=== PATIENT | female | born 1990 | race Caucasian/White ===

== ENCOUNTER 2016-10-02 08:58 | Emergency (ER) | payer SELFPAY ==
[~2016-10-02] VITALS: Ht 165.1 cm; Wt 68.0 kg
[2016-10-02 09:35] LABS: HEMOGLOBIN 11.9 g/dL (12.2-16.2); LYMPH # 1.9 K/mm3 (0.7-4.5); LYMPH % 24.3 % (10-50.0)
[2016-10-02 09:47] LABS: URINE BLOOD NEGATIVE (NEG)
[2016-10-02 09:52] LABS: URINE BILIRUBIN - DIPSTICK NEGATIVE (NEG)
[2016-10-02 09:53] LABS: AMPHETAMINES/METAMPHETAMINES POSITIVE ng/mL (<1000)
--- NOTE | 2016-10-02 10:15 | Emergency Room Report ---
History of Present Illness Time Seen by MD [id number] Presenting Problem in Triage Pt arrived:Ambulance Stretcher Presenting Problem:PT FOUND RUNNING AROUND IN TOWN WITH AMS. PT ARRIVED TO ED AND IS JERKING AND TWITCHING, PT DENIED ANY DRUG USE AND IS STILL NOT TALKING RIGHT. PT ADVISES SHE RUN AWAY BUT WILL NOT SAY FROM WHERE. PT GAVE ME A NAME BUT WILL NOT GIVE MUCH MORE INFORMATION Onset of symptoms date/time:/ or onset unknown for:MEDICAL HX UNKNOWN Treatment Prior to Arrival: COMPOSITE SCIENCE TEACHER ADVISES PT TALKING INCOHERENTLY AND WAS RUNNING AROUND V/S OBTAINED GEOGRAPHIC ANALYST Provided by:COMPOSITE SCIENCE TEACHER Sepsis Risk Assessment: Temp: 98.5 B/P: 140/85 MAP: 103 Pulse: 130 Resp: 16 Recent fever? N Clinical Suspician of Infection? N Mental Status: 2 - Mildly Altered Sepsis Risk:Low Sepsis Risk Have you (or family members/close friends) recently traveled outside the [place]? N If Yes, where/when: Have you had exposure to infectious disease within the past month? N TB? Other? Specify: Patient brought in by PD due to agitation in public. Patient arrives with visual hallucinations, asking RN to ask people to leave room, when only with medic. She denies any pain. She is at times singing, and at times agitated. 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 Multiple tattoos. Hair closely cropped. Eye Exam - bilateral eye normal exam, bilateral eye PERRL, bilateral eye EOMI Ear, Nose, Throat hearing grossly normal Neck non-tender, supple, full range of motion (linear excoriations anteriorly) Respiratory Status Yes: trachea midline, chest symmetrical, non tender chest. No: respiratory distress, tender on palpation, use of accessory muscles, pain on inspiration, pain on expiration, productive cough, non productive cough. Lung Sounds bilateral: normal breath sounds, lungs clear. Cardiovascular normal exam, regular rate/rhythm, no peripheral edema, no gallop, no JVD, no murmur, no rub, normal peripheral pulses, tachycardia Peripheral Pulses Pulses normal Yes Gastrointestinal normal bowel sounds, normal exam, non tender, soft, no organomegaly, no pulsatile mass, no guarding, no rebound Extremities non-tender (minor abrasion R foot/sole), normal range of motion Strength 5 Upper Ext (L), 5 Upper Ext (R), 5 Lower Ext (L), 5 Lower Ext (R) Neurologic alert, upper caser II-XII nml as tested, normal exam, no motor/sensory deficits, oriented x 3, nonfocal exam; no tremor; she is agitated and at times has random jerking movements of limbs and is actively hallucinating; no seizure activity. She talks with MD and is cooperative with MD and with staff. Skin intact (minor excoriations to neck) Lymphatic no adenopathy Medical Decision Making LABS/Meds/Orders Pt receiving controlled substance in ED? No Results/Orders Laboratory Tests 10/02/16 0930: Opiates Screen POSITIVE H, Urine Methadone Screen NEGATIVE, Barbiturates NEGATIVE, Phencyclidine Screen NEGATIVE, Amphetamines Screen POSITIVE H, Benzodiazepines Screen NEGATIVE, Cocaine Screen POSITIVE H, Marijuana (THC) Screen NEGATIVE, Urine Color YELLOW, Urine Appearance SL CLOUDY, Urine pH 5.5, Ur Specific [place] >= 1.030, Urine Protein 2+ H, Urine Ketones TRACE H, Urine Blood NEGATIVE, Urine Nitrate NEGATIVE, Urine Bilirubin NEGATIVE, Urine Urobilinogen 1.0, Ur Leukocyte Esterase NEGATIVE, Urine RBC 3-5, Urine WBC 5-10, Urine Bacteria 3+, Hyaline Casts OCC, Urine Mucus 3+, Urine Glucose NEGATIVE 10/02/16 0928: Troponin I < 0.02 10/02/16 0920: Sodium 140, Potassium 2.8 *L, Chloride 101, Carbon Dioxide 26, BUN 11, Creatinine 1.0, Estimated Creat Clear 91, Estimated GFR (MDRD) 67, Glucose 79, Calcium 9.1, Total Bilirubin 0.8, AST 50 H, ALT 97 H, Alkaline Phosphatase 51, Total Protein 7.9, Albumin 4.2, Globulin 3.7 H, Albumin/Globulin Ratio 1.1, WBC 7.6, RBC 3.92 L, Hgb 11.9 L, Hct 34.8 L, MCV 88.7, RDW 11.9, Plt Count 219, MPV 6.8 L, Gran % 68.2, Gran # 5.2, Lymphocytes % 24.3, Monocytes % 6.3, Eosinophils % 1.0, Basophils % 0.2, Lymphocytes # 1.9, Monocytes # 0.5, Eosinophils # 0.1, Basophils # 0.0, PUBS MCHC 34.2, MCH 30.4, Alcohols 0 Current Medication Orders Sig/Fred Start time Last Medication Dose Route Stop Time Status Admin Lorazepam 1 MG ONCE ONE 10/02 1015 DC 10/02 IV 10/02 1016 1009 Ziprasidone 20 MG ONCE ONE 10/02 1015 DC 10/02 PO 10/02 1016 1012 Potassium Chloride 0 .STK-MED ONE 10/02 1007 DC PO Lorazepam 0 .STK-MED ONE 10/02 1006 DC .ROUTE Potassium Chloride 40 MEQ ONCE ONE 10/02 1000 DC 10/02 PO 10/02 1001 1009 Sodium Chloride 10 ML PRN PRN 10/02 0930 AC IV 10/03 0917 Orders Procedure Date/time Status ALCOHOL 10/02 1029 Complete TROPONIN I 10/02 1016 Complete OP COURTSEY MEAL 10/02 1014 Active ELECTROCARDIOGRAM REQUEST 10/02 0937 Active CULTURE, URINE 10/02 929 Active FOOT-RT-3 VIEWS 10/02 916 Active IV SALINE LOCK 10/02 916 Active URINALYSIS/COMPLETE 10/02 916 Complete URINE 10/02 916 Complete DRUG ABUSE SCREEN (TRIAGE) 10/02 916 Complete CBC WITH AUTO DIFF 10/02 916 Complete CHEM 12 PROFILE 10/02 916 Complete 12 LEAD EKG-MIRACLE (INITIAL) 10/02 UNK Active CM/EKG CM/EKG EKG rate, rhythm, no evid. of ischemic chgs, no ectopy, normal QRS, normal [place] , normal EKG, sinus tach, TWI in one lead but no global TW changes; normal QTc; no ectopy; lots of motion artifact. Consult MD Physician Consult Consult/PCP Dr. Mendoza: stimulus abuse as etiology of visual hallucinations. Time Called 1026 Reason Transfer to facility Progress ED Progress Notes Date 10/02/16 Time 1026 Comment Give potassium and Geodon PO. Departure Departure Time of Disposition 1044 Disposition DC Home or Self Care(routine) Clinical Impression Primary Impression: Substance abuse Secondary Impressions: Abrasion, right foot, initial encounter, Acute psychosis, Hypokalemia Condition STABLE ED Critical Care Critical Care Yes Time spent < 30 min Vital system(s) involved: Circulatory Failure (agitation; hypokalemia) I was present at bedside for Coordinating pt's care, Interpreting EKGs/Strips , During my initial exam, Reviewing lab results, Discussing pt condition, For re -examinations (consultation) at 1121
--- NOTE | 2016-10-02 10:15 | Emergency Room Report ---
History of Present Illness Time Seen by MD [id number] Presenting Problem in Triage Pt arrived:Ambulance Stretcher Presenting Problem:PT FOUND RUNNING AROUND [place]OWN WITH AMS. PT ARRIVED TO ED AND IS JERKING AND TWITCHING, PT DENIED ANY DRUG USE AND IS STILL NOT TALKING RIGHT. PT ADVISES SHE RUN AWAY BUT WILL NOT SAY FROM WHERE. PT GAVE ME A NAME BUT WILL NOT GIVE MUCH MORE INFORMATION Onset of symptoms date/time:/ or onset unknown for:MEDICAL HX UNKNOWN Treatment Prior to Arrival: DIRECTOR OF ANALYTICAL DEVELOPMENT ADVISES PT TALKING INCOHERENTLY AND WAS RUNNING AROUND V/S OBTAINED MARINE INSULATOR Provided by:DIRECTOR OF ANALYTICAL DEVELOPMENT Sepsis Risk Assessment: Temp: 98.5 B/P: 140/85 MAP: 103 Pulse: 130 Resp: 16 Recent fever? N Clinical Suspician of Infection? N Mental Status: 2 - Mildly Altered Sepsis Risk:Low Sepsis Risk Have you (or family members/close friends) recently traveled outside the [place]? N If Yes, where/when: Have you had exposure to infectious disease within the past month? N TB? Other? Specify: Patient brought in by PD due to agitation in public. Patient arrives with visual hallucinations, asking RN to ask people to leave room, when only with medic. She denies any pain. She is at times singing, and at times agitated. 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 Multiple tattoos. Hair closely cropped. Eye Exam - bilateral eye normal exam, bilateral eye PERRL, bilateral eye EOMI Ear, Nose, Throat hearing grossly normal Neck non-tender, supple, full range of motion (linear excoriations anteriorly) Respiratory Status Yes: trachea midline, chest symmetrical, non tender chest. No: respiratory distress, tender on palpation, use of accessory muscles, pain on inspiration, pain on expiration, productive cough, non productive cough. Lung Sounds bilateral: normal breath sounds, lungs clear. Cardiovascular normal exam, regular rate/rhythm, no peripheral edema, no gallop, no JVD, no murmur, no rub, normal peripheral pulses, tachycardia Peripheral Pulses Pulses normal Yes Gastrointestinal normal bowel sounds, normal exam, non tender, soft, no organomegaly, no pulsatile mass, no guarding, no rebound Extremities non-tender (minor abrasion R foot/sole), normal range of motion Strength 5 Upper Ext (L), 5 Upper Ext (R), 5 Lower Ext (L), 5 Lower Ext (R) Neurologic alert, exhibitions and collections manager II-XII nml as tested, normal exam, no motor/sensory deficits, oriented x 3, nonfocal exam; no tremor; she is agitated and at times has random jerking movements of limbs and is actively hallucinating; no seizure activity. She talks with MD and is cooperative with MD and with staff. Skin intact (minor excoriations to neck) Lymphatic no adenopathy Medical Decision Making LABS/Meds/Orders Pt receiving controlled substance in ED? No Results/Orders Laboratory Tests 10/02/16 0930: Opiates Screen POSITIVE H, Urine Methadone Screen NEGATIVE, Barbiturates NEGATIVE, Phencyclidine Screen NEGATIVE, Amphetamines Screen POSITIVE H, Benzodiazepines Screen NEGATIVE, Cocaine Screen POSITIVE H, Marijuana (THC) Screen NEGATIVE, Urine Color YELLOW, Urine Appearance SL CLOUDY, Urine pH 5.5, Ur Specific [place] >= 1.030, Urine Protein 2+ H, Urine Ketones TRACE H, Urine Blood NEGATIVE, Urine Nitrate NEGATIVE, Urine Bilirubin NEGATIVE, Urine Urobilinogen 1.0, Ur Leukocyte Esterase NEGATIVE, Urine RBC 3-5, Urine WBC 5-10, Urine Bacteria 3+, Hyaline Casts OCC, Urine Mucus 3+, Urine Glucose NEGATIVE 10/02/16 0928: Troponin I < 0.02 10/02/16 0920: Sodium 140, Potassium 2.8 *L, Chloride 101, Carbon Dioxide 26, BUN 11, Creatinine 1.0, Estimated Creat Clear 91, Estimated GFR (MDRD) 67, Glucose 79, Calcium 9.1, Total Bilirubin 0.8, AST 50 H, ALT 97 H, Alkaline Phosphatase 51, Total Protein 7.9, Albumin 4.2, Globulin 3.7 H, Albumin/Globulin Ratio 1.1, WBC 7.6, RBC 3.92 L, Hgb 11.9 L, Hct 34.8 L, MCV 88.7, RDW 11.9, Plt Count 219, MPV 6.8 L, Gran % 68.2, Gran # 5.2, Lymphocytes % 24.3, Monocytes % 6.3, Eosinophils % 1.0, Basophils % 0.2, Lymphocytes # 1.9, Monocytes # 0.5, Eosinophils # 0.1, Basophils # 0.0, PUBS MCHC 34.2, MCH 30.4, Alcohols 0 Current Medication Orders Sig/Fred Start time Last Medication Dose Route Stop Time Status Admin Lorazepam 1 MG ONCE ONE 10/02 1015 DC 10/02 IV 10/02 1016 1009 Ziprasidone 20 MG ONCE ONE 10/02 1015 DC 10/02 PO 10/02 1016 1012 Potassium Chloride 0 .STK-MED ONE 10/02 1007 DC PO Lorazepam 0 .STK-MED ONE 10/02 1006 DC .ROUTE Potassium Chloride 40 MEQ ONCE ONE 10/02 1000 DC 10/02 PO 10/02 1001 1009 Sodium Chloride 10 ML PRN PRN 10/02 0930 AC IV 10/03 0917 Orders Procedure Date/time Status ALCOHOL 10/02 1029 Complete TROPONIN I 10/02 1016 Complete OP COURTSEY MEAL 10/02 1014 Active ELECTROCARDIOGRAM REQUEST 10/02 0937 Active CULTURE, URINE 10/02 929 Active FOOT-RT-3 VIEWS 10/02 916 Active IV SALINE LOCK 10/02 916 Active URINALYSIS/COMPLETE 10/02 916 Complete URINE 10/02 916 Complete DRUG ABUSE SCREEN (TRIAGE) 10/02 916 Complete CBC WITH AUTO DIFF 10/02 916 Complete CHEM 12 PROFILE 10/02 916 Complete 12 LEAD EKG-MIRACLE (INITIAL) 10/02 UNK Active CM/EKG CM/EKG EKG rate, rhythm, no evid. of ischemic chgs, no ectopy, normal QRS, normal [place] , normal EKG, sinus tach, TWI in one lead but no global TW changes; normal QTc; no ectopy; lots of motion artifact. Consult MD Physician Consult Consult/PCP Dr. Mendoza: stimulus abuse as etiology of visual hallucinations. Time Called 1026 Reason Transfer to facility Progress ED Progress Notes Date 10/02/16 Time 1026 Comment Give potassium and Geodon PO. Departure Departure Time of Disposition 1044 Disposition DC Home or Self Care(routine) Clinical Impression Primary Impression: Substance abuse Secondary Impressions: Abrasion, right foot, initial encounter, Acute psychosis, Hypokalemia Condition STABLE ED Critical Care Critical Care Yes Time spent < 30 min Vital system(s) involved: Circulatory Failure (agitation; hypokalemia) I was present at bedside for Coordinating pt's care, Interpreting EKGs/Strips , During my initial exam, Reviewing lab results, Discussing pt condition, For re -examinations (consultation) at 1126
--- OUTSIDE RECORDS SUMMARY | 2016-10-02 10:23 | External Medical Summary Rpt ---
Author Author [facility] Organization [facility] Address Unknown Phone Unavailable Care Team Providers Care Cream Beater Name Role Phone DR KHOI PCP [phone] Encounter [facility] [id number] Date(s): 03/12/16 - 03/12/16 [facility] 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 Discharge Disposition: OP Self Care or Home Attending Physician: DG DELANEY -EMR, MD Admitting Physician: DG DELANEY -EMR, MD Referring Physician: HRAIKA WESTFALL REFERRED Reason for Visit INTOXICATION Vital Signs Most recent 1 2 to oldest [Reference Range]: Temperature Oral Source (03/12/16 5:30 AM) Temperature Fahrenheit Mode (03/12/16 5:30 AM) Temperature, 98.4 Deg F Fahrenheit (03/12/16 5:30 AM) [96.8-99.7 Deg F] Clinical 36.9 Deg C Temperature, (03/12/16 5:30 AM) C Peripheral 90 bpm 98 bpm Pulse Rate (03/12/16 7:26 AM) (03/12/16 5:30 AM) [60-100 bpm] Respiratory 18 Breaths/Min Rate [14-20 (03/12/16 7:26 AM) Breaths/Min] Blood Arm, left upper Pressure (03/12/16 5:30 AM) Location Blood Non-Invasive BP Device Pressure (03/12/16 5:30 AM) Source Blood 106/66 mmHg 150/58 mmHg Pressure (03/12/16 7:26 AM) *HI* [90-140/60-9 (03/12/16 5:30 AM) 0 mmHg] Oxygen 99 % 99 % Saturation (03/12/16 7:26 AM) (03/12/16 5:30 AM) [94-100 %] Oxygen Room air Room air Therapy Mode (03/12/16 7:26 AM) (03/12/16 5:30 AM) Problem List Condition Effective Status Health Informant Dates Status Substance Active abuse(Confir med) Allergies, Adverse Reactions, Alerts No Known Allergies Medications No data available for this section Results GENERAL CHEMISTRY Most recent 1 to oldest [Reference Range]: Sodium Level 133 mmol/L [135-143 *LOW* mmol/L] (03/12/16 5:57 AM) Potassium 3.0 mmol/L Level *LOW* [3.5-4.8 (03/12/16 5:57 AM) mmol/L] Chloride 99 mmol/L Level *LOW* [100-110 (03/12/16 5:57 AM) mmol/L] Carbon 28.0 mmol/L Dioxide (03/12/16 5:57 AM) Level [22.0-30.0 mmol/L] Anion Gap 6.0 [2.0-11.0] (03/12/16 5:57 AM) Glucose 105 mg/dL Level (03/12/16 5:57 AM) [70-110 mg/dL] Blood Urea 6 mg/dL Nitrogen (03/12/16 5:57 AM) [6-20 mg/dL] Creatinine 0.70 mg/dL Level (03/12/16 5:57 AM) [0.44-1.03 mg/dL] eGFR 122 mL/min/1.73m2 [>=60 (03/12/16 5:57 AM) mL/min/1.73m 2] eGFR 100 mL/min/1.73m2 NonAfrican (03/12/16 5:57 AM) [>=60 mL/min/1.73m 2] Bun/Creatini 8.6 ne (03/12/16 5:57 AM) [6.0-22.0] Calcium 9.2 mg/dL Level (03/12/16 5:57 AM) [8.9-10.2 mg/dL] Protein 7.1 Gram/dL Total (03/12/16 5:57 AM) [6.3-8.2 Gram/dL] Albumin 3.8 Gram/dL Level (03/12/16 5:57 AM) [3.3-4.5 Gram/dL] Globulin 3 *NA* (03/12/16 5:57 AM) A/G Ratio 1.3 [1.0-1.7] (03/12/16 5:57 AM) Bilirubin 0.5 mg/dL Total (03/12/16 5:57 AM) [0.2-1.0 mg/dL] Alk Phos 59 Units/Liter [25-105 (03/12/16 5:57 AM) Units/Liter] AST [8-34 70 Units/Liter Units/Liter] *HI* (03/12/16 5:57 AM) ALT [10-50 99 Units/Liter Units/Liter] *HI* (03/12/16 5:57 AM) CARDIAC SPECIFIC MARKERS Most recent 1 to oldest [Reference Range]: CK [0-188 104 Units/Liter Units/Liter] (03/12/16 5:57 AM) HEMATOLOGY Most recent 1 to oldest [Reference Range]: WBC 6.3 x10(3)/uL [4.1-10.8 (03/12/16 5:57 AM) x10(3)/uL] RBC 4.07 x10(6)/uL [3.77-5.16 (03/12/16 5:57 AM) x10(6)/uL] Hgb 11.9 Gram/dL [11.2-15.7 (03/12/16 5:57 AM) Gram/dL] Hct 35.8 % [34.1-44.9 (03/12/16 5:57 AM) %] MCV 88.0 fL [79.4-94.8 (03/12/16 5:57 AM) fL] MCH 29.3 pg [25.6-32.2 (03/12/16 5:57 AM) pg] MCHC 33.3 Gram/dL [32.2-35.5 (03/12/16 5:57 AM) Gram/dL] Platelet 242 x10(3)/uL Count (03/12/16 5:57 AM) [140-370 x10(3)/uL] MPV 6.4 fL [8.7-12.0 *LOW* fL] (03/12/16 5:57 AM) RDW 13.6 % [11.7-15.2 (03/12/16 5:57 AM) %] Neut % 68.4 % [34.0-69.5 (03/12/16 5:57 AM) %] Neut # 4.30 x10(3)/uL [1.70-6.00 (03/12/16 5:57 AM) x10(3)/uL] Lymph % 22.7 % [20.0-53.0 (03/12/16 5:57 AM) %] Lymph # 1.4 x10(3)/uL [0.8-3.2 (03/12/16 5:57 AM) x10(3)/uL] [place] % 7.9 % [5.0-12.5 %] (03/12/16 5:57 AM) [place] # 0.5 x10(3)/uL [0.2-1.4 (03/12/16 5:57 AM) x10(3)/uL] Eos % 0.7 % [0.7-6.0 %] (03/12/16 5:57 AM) Eos # 0.0 x10(3)/uL [0.0-0.6 (03/12/16 5:57 AM) x10(3)/uL] Baso % 0.3 % [0.0-3.0 %] (03/12/16 5:57 AM) Baso # 0.0 x10(3)/uL [0.0-0.3 (03/12/16 5:57 AM) x10(3)/uL] Slide Review None *NA* (03/12/16 5:57 AM) URINALYSIS Most recent 1 to oldest [Reference Range]: Ur RBC [None 0-4 /HPF /HPF] (03/12/16 6:44 AM) Ur WBC [None 0-4 /HPF /HPF] (03/12/16 6:44 AM) Ur Mucous Present *NA* (03/12/16 6:44 AM) Ur Squamous 0-4 /HPF Epithelial (03/12/16 6:44 AM) Cells [None /HPF] Urine Negative Bilirubin (03/12/16 6:42 AM) POC [Negative] Urine Blood Negative POC (03/12/16 6:42 AM) [Negative] Urine Negative mg/dL Glucose POC (03/12/16 6:42 AM) [Negative mg/dL] Urine Negative mg/dL Ketones POC (03/12/16 6:42 AM) [Negative mg/dL] Urine Negative Leukocyte (03/12/16 6:42 AM) Esterase POC [Negative] Urine Positive Nitrite POC *ABN* [Negative] (03/12/16 6:42 AM) Urine pH POC 6.0 *NA* (03/12/16 6:42 AM) Urine Negative mg/dL Protein POC (03/12/16 6:42 AM) [Negative mg/dL] Urine 1.025 Specific *NA* [place] POC (03/12/16 6:42 AM) Urine 0.2 EU/dL Urobilinogen *NA* POC (03/12/16 6:42 AM) Specimen Urine Type, Urine (03/12/16 6:45 AM) POC THERAPEUTIC DRUGS Most recent 1 to oldest [Reference Range]: Acetaminophe <10.0 mcg/mL n Level (03/12/16 5:57 AM) [10.0-30.0 mcg/mL] Salicylate <4.0 mg/dL [5.0-30.0 *LOW* mg/dL] (03/12/16 5:57 AM) TOXICOLOGY Most recent 1 to oldest [Reference Range]: Acetone Qual Negative [Negative] (03/12/16 5:57 AM) Ethanol Qual Negative [Negative] (03/12/16 5:57 AM) Isopropyl Negative Qual (03/12/16 5:57 AM) [Negative] Methanol Negative Qual (03/12/16 5:57 AM) [Negative] TCA Qual Negative [Negative] (03/12/16 5:57 AM) Benzodiazepi Negative nick Qual (03/12/16 5:57 AM) [Negative] Collected By DES FORD *NA* (03/12/16 5:57 AM) Anamika GASTELUM *NA* (03/12/16 5:57 AM) Amphetamines Screen Positive Ur *ABN* [Negative] (03/12/16 6:44 AM) Cocaine Ur Negative [Negative] (03/12/16 6:44 AM) Methadone Ur Negative [Negative] (03/12/16 6:44 AM) Opiates Ur Screen Positive [Negative] *ABN* (03/12/16 6:44 AM) Oxycodone Ur Negative [Negative] (03/12/16 6:44 AM) Immunizations No data available for this section Procedures No data available for this section Social History Social History Response Type Smoking Status Current every day smoker Assessment and Plan No data available for this section Hospital Discharge Instructions Patient EducationStimulant Use Disorder-Methamphetamines
--- OUTSIDE RECORDS SUMMARY | 2016-10-02 10:23 | External Medical Summary Rpt ---
Author Author [facility] Organization [facility] Address Unknown Phone Unavailable Care Team Providers Care Unionmelt Operator Name Role Phone DR KHOI PCP [phone] Encounter [facility] [id number] Date(s): 03/12/16 - 03/12/16 [facility] 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
--- OUTSIDE RECORDS SUMMARY | 2016-10-02 10:24 | External Medical Summary Rpt ---
Author Author , Organization [employer] Address Unknown Phone Unavailable Care Team Providers Care Spot Remover Name Role Phone [facility] Unavailable Unavailable MEDICAL , [facility] Unavailable Unavailable [facility] Unavailable Unavailable MEDICAL GROUP, [facility] Un[facility] Unavailable [facility] MAXIMO BRIDGETTE, MAXIMO BRIDGETTE Unavailable [facility]available [facility], Unavailable Unavailable [facility] Un[facility] Unavailable [facility], [facility] Unavailable Unavailable [facility], [facility] CHANDIRAMANI SHA, Unavailable Unavailable CHANDIRAMANI SHA VARNELL [facility], VARNELL Unavailable Unavailable [facility], Unavailable Unavailable [facility] Unavailable Unavailable CENTER [facility], [facility] MIRACLE MAT, MIRACLE MAT Unavailable [facility]available [facility] Unavailable Unavailable MEDICIN, [facility] MARISELA JOVI, MARISELA JOVI Unavailable Unavailable [facility] Unavailable [facility]available [facility], [facility] Unavailable Unavailable MEDICAL SP, [facility] Unavailable Unavailable [place] [place] Purpose Continuity of Care Document - 04-21-2014 through 2016 Problems Code Diagnosis DOS Provider Status A419 SEPSIS 12-18-2015 [facility] UNSPECIFIED [facility] N10 ACUTE 12-18-2015 [facility] TIS MEDICIN R000 TACHYCARDIA 12-18-2015 [facility] UNSPECIFIED MEDICIN R1012 LEFT UPPER 12-18-2015 [facility] [place] R109 UNSPECIFIED 12-18-2015 [facility] PAIN R112 NAUSEA WITH 12-18-2015 [facility] UNSPECIFIED MEDICIN R4182 ALTERED 12-18-2015 [facility] STATUS UNSPECIFIED R509 FEVER 12-18-2015 [facility] [place] R5383 OTHER 12-18-2015 [facility] MEDICIN [id number] PERSONAL 12-18-2015 [facility] HISTORY OF HEALTH NICOTINE [facility] DEPENDENCE [id number] POISN UNS 10-11-2015 [facility] BIO SERVICE SUBSTANCE ACC INIT ENC K088 OTH SPEC 09-12-2015 [facility] TEETH & MEDICAL SP SUPPORTING STRUCTURES 5259 UNSPECIFIED 01-02-2015 [facility] TEETH&SUPPO MEDICAL RTING STRUCTURES 91077 UNSPECIFIED 12-10-2014 [place] VIRAL PRIMARY HEPATITIS C CARE SOUT W/O HEPATIC COMA 2859 UNSPECIFIED 12-10-2014 [place] AN[facility]IA PRIMARY CARE SOUT 7945 NONSPECIFIC 12-10-2014 [facility] ABNORM [place] [facility]ULTS [facility] THYROID FUNCT STUDY V0179 CONTACT OR 12-08-2014 [facility] EXPOSURE TO [place] OTHER HOSPI VIRAL DISEASES V700 ROUTINE 12-08-2014 [facility] GENERAL [place] [facility] EXAM@HEALTH CARE FACL V829 SCREENING 12-08-2014 [place] FOR PRIMARY UNSPECIFIED CARE SOUT CONDITION 9219 UNSPECIFIED 11-28-2014 [facility] CONTUSION EMERGENCY OF EYE MEDICAL E914 FOREIGN 11-28-2014 [facility] BODY [facility]ERG[facility]Y ACCIDENTALL MEDICAL Y ENTERING EYE&ADNEXA 3679 UNSPECIFIED 11-04-2014 [facility] [place] A REFRACTION& ACCOMMODATI ON Procedures Procedure [place] [address] GNOSTICIST GNOSTICIST LIPASE 6 [facility] E E [facility]OUND A0425 [facility] MILEAGE 6 [facility] PER STATUTE MILE ECG 61519 GNOSTICIST [facility] ROUTINE 6 [facility] ANI SHA ECG MEDICAL W/LEAST GROUP 12 LDS I&R ONLY INJECTION J0696 GNOSTICIST GNOSTICIST [address] [place] [address] HEALTH CEFTRIAXO [facility] NE SODIUM [place] [address] [place] [address] GNOSTICIST GNOSTICIST ABDOMEN & 6 [facility] HEALTH PELVIS [facility] W/CONTRAS E E T MATERIAL DRUG TEST G0479 GNOSTICIST GNOSTICIST [address] [place] [address] PRESUMP;I [facility] NSTRUMENT E E ED CHEMISTRY ANLYZER ECG 14361 GNOSTICIST GNOSTICIST ROUTINE 6 [facility] ECG [facility] W/LEAST E E 12 LDS TRCG ONLY W/O I&R SUSCEPTIB 89440 GNOSTICIST GNOSTICIST LTY STDY 6 [facility] ANTIMICRB [facility] IAL E E MICRO/AGA R DILUTJ BLOOD 52576 GNOSTICIST GNOSTICIST COUNT 6 [facility] COMPLETE [facility] AUTO&AUTO E E DIFRNTL WBC GONADOTRO 80549 GNOSTICIST GNOSTICIST PIN 6 [facility] CHORIONIC [facility] E E QUALITATI VE URNLS DIP 57743 GNOSTICIST GNOSTICIST [address] [place] [address] STICK/TAB [facility] [place] [address] GNOSTICIST GNOSTICIST INFUSION 6 [facility] THERAPY/P [facility] ROPHYLAXI E E S /DX 1ST TO 1 HR LOCM Q9967 GNOSTICIST GNOSTICIST 300-[address] [place] [address] MG/ML [facility] IODINE E E CONCENTRA TION PER ML CULTURE 26401 GNOSTICIST GNOSTICIST BCT [address] [place] [address] ISOL&PRSM [facility] PTV ID E E ISOLATE EA URINE CULTURE 03522 GNOSTICIST GNOSTICIST BACTERIAL [address] [place] [address] QUANTTATI [place] [address] GNOSTICIST GNOSTICIST LACTATE [address] [place] [address] E E COMPREHEN 01375 GNOSTICIST GNOSTICIST SIVE [address] [place] [address] METABOLIC [facility] [place] [address] GNOSTICIST GNOSTICIST INFUSION [address] [place] [address] HYDRATION [facility] EACH E E ADDITIONA L HOUR AMB A0427 [facility]ICE 6 [facility] EMERGENCY EMERGENCY SERVICE SERVICE TRANSPORT LEVEL 1 GROUND A0425 [facility] MILEAGE 6 PER EMERGENCY EMERGENCY [place] [address] [facility] THYROXINE 5 OF OF TOTAL [place] [facility] E HOSPI MICROSOMA 01169 [facility] L 5 OF OF ANTIBODIE [place] EACH E HOSPI E HOSPI THYROGLOB 76520 [facility] ULIN 5 OF OF ANTIBODY [place] [facility]OSPI E HOSPI THYROID 31964 [facility] HORM 5 OF OF UPTK/THYR [place] OID E HOSPI E [place]OS[place] [address] [facility] THYROID 5 OF OF STIMULATI [place] [address] [facility] THYROID 5 OF OF STIMULATI [place] E HOSPI E HOSPI HORMONE TSH ACUTE 45678 [facility] HEPATITIS 5 OF OF PANEL [place] [facility] E HOSPI COMPREHEN 64934 [facility] SIVE 5 OF OF METABOLIC [place] PANEL E HOSPI E HOSPI BLOOD 11484 [facility] COUNT 5 OF OF COMPLETE [place] AUTO&AUTO E HOSPI E HOSPI DIFRNTL WBC LIPID 94750 [facility] PANEL 5 OF OF [place] [facility]OSPI E HOSPI DETERMINA 68214 [facility] TION 5 M EYE M [facility] RE[facility] CARE E [facility] A OPHTH 62457 [facility] MEDICAL [address] [facility]&EVAL CARE [facility] A NEW PT 1/> VST Encounters Encounter Start End Date Code Location Performer Type Date [facility] GNOSTICIST - 6 6 HEALTH OUTPATIEN TERESA T E EMERGENCY 25615 GNOSTICIST DEPT 6 6 HEALTH VISIT TERESA HIGH E SEVERITY& THREAT [facility] 60121 [facility] BRIDGETTE 6 6 EMERG DEPARTMEN MEDICAL T VISIT SP MODERATE SEVERITY EMERGENCY 80250 [facility] 5 5 [facility] VISIT HIGH/URGE NT SEVERITY OFFICE 31300 RICARDO RAUSCH WERNER OUTPATIEN 5 5 E PRIMARY T VISIT CARE [address] [place] [address] [facility] INIT[facility] 84225 RICARDO RAUSCH WERNER PREVENTIV 5 5 E PRIMARY E CARE MEDICINE [facility] A[facility] 18-39YRS [facility] - 5 5 OF [facility]OS[facility] EMERGENCY 47422 INOCENCIA ANTONIO JOVI 5 5 EMERGENCY DEPARTMEN MEDICAL T VISIT HIGH/URGE NT SEVERITY
--- OUTSIDE RECORDS SUMMARY | 2016-10-02 10:24 | External Medical Summary Rpt ---
Author Author , Organization [employer] Address Unknown Phone Unavailable Care Team Providers Care Farmworker Dairy Name Role Phone [facility] Unavailable Unavailable MEDICAL , [facility] Unavailable Unavailable [facility], [facility] Unavailable Unavailable MEDICAL GROUP, [facility] Unavailable Unavailable C[facility]OUT, [facility] MAXIMO BRIDGETTE, MAXIMO BRIDGETTE Unavailable Unavailable [facility], Unavailable Unavailable [facility] Unavailable Unavailable [facility], [facility] Unavailable Unavailable [facility], [facility] CHANDIRAMANI SHA, Unavailable Unavailable CHANDIRAMANI SHA [facility], [facility] Unavailable Unavailable [facility], Unavailable Unavailable [facility] Unavailable Unavailable CENTER A, [facility] MIRACLE MAT, MIRACLE MAT Unavailable Unavailable [facility] Unavailable Unavailable MEDICIN, [facility] MARISELA JOVI, MARISELA JOVI Unavailable Unavailable [facility] [place] Unavailable Unavailable [facility], [facility] Unavailable Unavailable MEDICAL SP, [facility] SP [facility] Unavailable Unavailable [place] [place] Purpose Continuity of Care Document - 04-21-2014 through 2016 Problems Code Diagnosis DOS Provider Status A419 SEPSIS 12-18-2015 [facility]PECIFIED [facility] N10 ACUTE 12-18-2015 [facility] TIS MEDICIN R000 TACHYCARDIA 12-18-2015 [facility] UNSPECIFIED MEDICIN R1012 LEFT UPPER 12-18-2015 [facility] [place] R109 UNSPECIFIED 12-18-2015 [facility] PAIN R112 NAUSEA WITH 12-18-2015 [facility] V[facility]ERGENCY UNSPECIFIED MEDICIN R4182 ALTERED 12-18-2015 [facility] STATUS UNSPECIFIED R509 FEVER 12-18-2015 [facility] [place] R5383 OTHER 12-18-2015 [facility] MEDICIN [id number] PERSONAL 12-18-2015 [facility] HISTORY OF HEALTH NICOTINE [facility] DEPENDENCE [id number] POISN UNS 10-11-2015 [facility] BIO SERVICE SUBSTANCE ACC INIT ENC K088 OTH SPEC 09-12-2015 [facility] TEETH & MEDICAL SP SUPPORTING STRUCTURES 5259 UNSPECIFIED 01-02-2015 [facility] TEETH&SUPPO MEDICAL RTING STRUCTURES 66072 UNSPECIFIED 12-10-2014 [place] VIRAL PRIMARY HEPATITIS C [...] UNSPECIFIED CARE SOUT CONDITION 9219 UNSPECIFIED 11-28-2014 [facility] CONT[facility]ION [facility] OF EYE MEDICAL E914 FOREIGN 11-28-2014 [facility] ACCIDENTALL MEDICAL Y ENTERING EYE&ADNEXA 3679 UNSPECIFIED 11-04-2014 [facility] [place] A REFRACTION& ACCOMMODATI ON Procedures Procedure DOS [place] [address] [facility] LIPASE 6 [facility] E E GROUND A0425 [facility] 6 [facility] PER STATUTE MILE ECG 81264 [facility] ROUTINE 6 [facility] ANI SHA ECG MEDICAL W/LEAST GROUP 12 LDS I&R ONLY INJECTION J0696 [facility] [address] [place] [address] HEALTH CEFTRIAXO [facility] NE SODIUM [place] [address] [place] [address] [facility] ABDOMEN & 6 [facility] HEALTH PELVIS [facility] W/CONTRAS E E T MATERIAL DRUG TEST G0479 [facility] [address] [place] [address] PRESUMP;I [facility] NSTRUMENT E E ED CHEMISTRY ANLYZER ECG 95503 [facility] ROUTINE 6 [facility] ECG [facility] W/LEAST E E 12 LDS TRCG ONLY W/O I&R SUSCEPTIB 54189 [facility] LTY STDY 6 [facility] ANTIMICRB [facility] IAL E E MICRO/AGA R DILUTJ BLOOD 93912 [facility] COUNT 6 [facility] COMPLETE [facility] AUTO&AUTO E E DIFRNTL WBC GONADOTRO 45666 [facility] PIN 6 [facility] CHORIONIC [facility] E E QUALITATI VE URNLS DIP 80256 [facility] [address] [place] [address] STICK/TAB [facility] [place] [address] [facility] INFUSION 6 [facility] THERAPY/P [facility] ROPHYLAXI E E S /DX 1ST TO 1 HR LOCM Q9967 [facility] 300-[address] [place] [address] MG/ML [facility] IODINE E E CONCENTRA TION PER ML CULTURE 20018 [facility] BCT [address] [place] [address] ISOL&PRSM [facility] PTV ID E E ISOLATE EA URINE CULTURE 90066 [facility] BACTERIAL [address] [place] [address] QUANTTATI [place] [address] [facility] LACTATE [address] [place] [address] E E COMPREHEN 20995 [facility] SIVE [address] [place] [address] METABOLIC [facility] [place] [address] [facility] INFUSION [address] [place] [address] HYDRATION [facility] EACH E E ADDITIONA L HOUR AMB A0427 [facility] SERVICE 6 [facility] EMERGENCY EMERGENCY SERVICE SERVICE TRANSPORT LEVEL 1 GROUND A0425 [facility] MILEAGE 6 PER EMERGENCY EMERGENCY [place] [address] [facility] THYROXINE 5 OF OF TOTAL [place] [facility] E HOSPI MICROSOMA 04632 [facility] L 5 OF OF ANTIBODIE [place] EACH E HOSPI E HOSPI THYROGLOB 03389 [facility] ULIN 5 OF OF ANTIBODY [facility] [facility]OSPI E HOSPI THYROID 67808 [facility] HORM 5 OF OF UPTK/THYR [facility] [facility] OID E HOSPI E HOS[place] [address] [facility] THYROID 5 OF OF STIMULATI [place] [address] [facility] THYROID 5 OF OF STIMULATI [place] E HOSPI E HOSPI HORMONE TSH ACUTE 91205 [facility] HEPATITIS 5 OF OF PANEL [place] [facility] E HOSPI COMPREHEN 42229 [facility] SIVE 5 OF OF METABOLIC [place] PANEL E HOSPI E HOSPI BLOOD 13751 [facility] COUNT 5 OF OF COMPLETE [place] AUTO&AUTO E HOSPI E HOSPI DIFRNTL WBC LIPID 17579 [facility] PANEL 5 OF OF [place] [facility]OSPI E HOSPI DETERMINA 42532 [facility] TION 5 M EYE M [facility] REFRACTIV CARE E [facility] A OPHTH 82328 [facility] MEDICAL 5 M EYE M [facility]&EVAL CARE [facility] A NEW PT 1/> VST Encounters Encounter Start End Date Code Location Performer Type Date [facility] - 6 6 HEALTH OUTPATIEN TERESA T E EMERGENCY 22307 [facility] DEPT 6 6 HEALTH VISIT TERESA HIGH E SEVERITY& THREAT [facility] 63962 [facility] BRIDGETTE 6 6 EMERG DEPARTMEN MEDICAL T VISIT SP MODERATE SEVERITY EMERGENCY 68931 [facility] 5 [facility] MEDICAL T VISIT HIGH/URGE NT SEVERITY OFFICE 27557 [facility]ARDO RAUSCH WERNER OUTPATIEN 5 5 E PRIMARY T VISIT CARE [address] [place] [address] [facility] - 5 5 [facility] INITIAL 97422 RICARDO RAUSCH WERNER PREVENTIV 5 5 E PRIMARY E CARE MEDICINE [facility] A[facility] 18-39YRS [facility] - 5 5 [facility] EMERGENCY 47642 INOCENCIA ANTONIO JOVI 5 5 EMERGENCY DEPARTMEN MEDICAL T VISIT HIGH/URGE NT SEVERITY
--- OUTSIDE RECORDS SUMMARY | 2016-10-02 10:25 | External Medical Summary Rpt ---
Author Author , Organization [employer] Address Unknown Phone Unavailable Care Team Providers Care Blind Escort Name Role Phone [facility] Unavailable Unavailable [facility] , [facility] Unavailable Unavailable [place], [facility] Unavailable Unavailable [facility] GROUP, [facility] Un[facility]available [facility], [facility] MAXIMO BRIDGETTE, MAXIMO BRIDGETTE Unavailable [facility]available [facility], Unavailable Unavailable [facility] Un[facility] Unavailable [facility], [facility] Unavailable Unavailable [facility], [facility] CHANDIRAMANI SHA, Unavailable Unavailable CH[facility]IRAM[facility] SHA [place] [facility], [place] Unavailable Unavailable [facility] JOLGREN KAYCEE, JOLGREN Unavailable Unavailable KAYCEE CRISTOPHER BERMEO DEN, Unavailable Unavailable CRISTOPHER [facility], Unavailable Unavailable [facility] Unavailable Unavailable CENTER A, [facility] MIRACLE MAT, MIRACLE MAT Unavailable Unavailable [facility] Unavailable Unavailable [facility], [facility] MARISELA JOVI, MARISELA JOVI Unavailable Unavailable [facility] Unavailable Unavailable [facility] Unavailable Unavailable [facility], [facility] Unavailable [facility]available [facility] Purpose Continuity of Care Document - 04-21-2014 through 2016 Problems Code Diagnosis DOS Provider Status A419 SEPSIS 12-18-2015 [facility]PECIF[facility] N10 ACUTE 12-18-2015 [place] [facility]ER[facility] TIS MEDICIN R000 TACHYCARDIA 12-18-2015 [place] [facility] UNSPECIFIED MEDICIN R1012 LEFT UPPER 12-18-2015 [facility] [place] R109 UNSPECIFIED 12-18-2015 [facility]BDOMINAL [facility] PAIN R112 NAUSEA WITH 12-18-2015 [place] V[facility]ING [facility]ERGENCY UNSPECIFIED MEDICIN R4182 ALTERED 12-18-2015 [facility] STATUS UNSPECIFIED R509 FEVER 12-18-2015 [facility]PECIFIED [facility] R5383 OTHER 12-18-2015 [place] FATIGUE EMERGENCY MEDICIN Q35060 PERSONAL 12-18-2015 [facility] HISTORY OF HEALTH NICOTINE [place] DEPENDENCE [id number] POISN UNS 10-11-2015 [facility] BIO SERVICE SUBSTANCE ACC INIT ENC K088 OTH SPEC 09-12-2015 [facility] TEETH & MEDICAL SP SUPPORTING STRUCTURES 5259 UNSPECIFIED 01-02-2015 [facility] TEETH&SUPPO MEDICAL RTING STRUCTURES 87316 UNSPECIFIED 12-10-2014 [place] VIRAL PRIMARY HEPATITIS C [...] UNSPECIFIED CARE SOUT CONDITION 9219 UNSPECIFIED 11-28-2014 [facility] CONT[facility]ION EMERGENCY OF EYE MEDICAL E914 FOREIGN 11-28-2014 [facility] ACCIDENTALL MEDICAL Y ENTERING EYE&ADNEXA 3679 UNSPECIFIED 11-04-2014 [facility] [facility] CENTER A REFRACTION& ACCOMMODATI ON Procedures Procedure [place] [address] [facility] INFUSION 6 HEALTH HEALTH THERAPY/P [facility] ROPHYLAXI E E S /DX 1ST TO 1 HR URNLS DIP 15988 [facility] [address] [place] [address] STICK/TAB [facility] LET E E REAGENT AUTO MICROSCOP Y GONADOTRO 68817 [facility] PIN [address] [place] [address] CHORIONIC [facility] E E QUALITATI VE BLOOD 48775 [facility] COUNT [address] [place] [address] COMPLETE [facility] AUTO&AUTO E E DIFRNTL WBC SUSCEPTIB 32816 [facility] LTY STDY 6 [facility] ANTIMICRB [facility] IAL E E MICRO/AGA R DILUTJ DRUG TEST G0479 [facility] 6 [facility] PRESUMP;I [facility] NSTRUMENT E E ED CHEMISTRY ANLYZER INJECTION J0696 [facility] 6 [facility] CEFTRIAXO [facility] NE SODIUM E [place] [address] [place] [address] [facility] J[facility]GREN ABDOMEN & 6 ASSOCIATE KAYCEE PELVIS S OF W/CONTRAS [facility] T MATERIAL ECG 25262 [facility] CHANDIRAM ROUTINE 6 [facility] ECG MEDICAL W/LEAST GROUP 12 LDS I&R ONLY GROUND A0425 [facility] 6 [place] [address] [facility] INFUSION 6 [facility] HYDRATION [facility] EACH E E ADDITIONA L HOUR COMPREHEN 73475 [facility] SIVE [address] [place] [address] METABOLIC [facility] [place] [address] [facility] LACTATE [address] [place] [address] E E LOCM Q9967 P[facility] [phone] [place] [address] MG/ML [facility] IODINE E E CONCENTRA TION PER ML CULTURE 93178 [facility] BACTERIAL 6 [facility] QUANTTATI E E VE COLONY COUNT URINE CULTURE 43281 [facility] BCT [address] [place] [address] ISOL&PRSM [facility] PTV [place] [address] [facility] LIPASE 6 [facility] E E ECG 24953 [facility] ROUTINE [address] [place] [address] ECG [facility] W/LEAST E E 12 LDS TRCG ONLY W/O I&R AMB A0427 [facility] SERVICE 6 [facility] EMERGENCY EMERGENCY SERVICE SERVICE TRANSPORT LEVEL 1 GROUND A0425 [facility] MILEAGE 6 PER EMERGENCY EMERGENCY STATUTE SERVICE SERVICE MILE MICROSOMA 42326 [facility] L 5 OF OF ANTIBODIE [place] [address] [facility] THYROXINE 5 OF OF TOTAL [place] E HOSPI E HOSPI THYROID 68240 [facility] HORM 5 OF OF UPTK/THYR [place] OID E HOSPI E HOSPI HORMONE BINDING RATIO THYROGLOB 19326 [facility] ULIN 5 OF OF ANTIBODY [place] [address] [facility] THYROID 5 OF OF STIMULATI [place] NG E HOSPI E HOSPI HORMONE TSH COMPREHEN 47561 [facility] SIVE 5 OF OF METABOLIC [place] PANEL E HOSPI E HOSPI ACUTE 40542 [facility] HEPATITIS 5 OF OF PANEL [place] [address] [facility] THYROID 5 OF OF STIMULATI [place] NG E HOSPI E HOSPI HORMONE TSH LIPID 78646 [facility] PANEL 5 OF OF [place] E HOSPI E HOSPI BLOOD 97925 [facility] COUNT 5 OF OF COMPLETE [place] AUTO&AUTO E HOSPI E HOSPI DIFRNTL WBC DETERMINA 32214 [facility] TION 5 M EYE [facility] REFRACTIV CARE E [facility] C[facility] A OPHTH 26414 [facility] MEDICAL 5 M EYE [facility] XM&EVAL CARE [facility] A NEW PT 1/> VST Encounters Encounter Start End Date Code Location Performer Type Date EMERGENCY 84649 TERESA NICHOLAS DEPT 6 6 E JR. DEN VISIT EMERGENCY HIGH MEDICIN SEVERITY& THREAT [facility] - 6 6 HEALTH OUTPATIEN TERESA Melgoza EMERGENCY 63010 [facility] BRIDGETTE 6 6 EMERG DEPARTMEN MEDICAL T VISIT SP MODERATE SEVERITY EMERGENCY 34674 [facility] ATTILA 5 5 EMERGENCY GRE DEPARTMEN MEDICAL T VISIT HIGH/URGE NT SEVERITY [facility] 5 5 OF OUTPATIEN [facility] OFFICE 41399 RICARDO CALDERA OUTPATIEN 5 5 E PRIMARY T VISIT CARE 25 SOUT MINUTES INITIAL 29336 RICARDO CALDERA PREVENTIV 5 5 E PRIMARY E CARE MEDICINE SOUT NEW PT AGE 18-39YRS [facility] - 5 5 OF OUTPATIEN [place] T E HOSPI EMERGENCY 80926 INOCENCIA ESP[facility] 5 5 EMERGENCY DEPARTMEN MEDICAL T VISIT HIGH/URGE NT SEVERITY
--- OUTSIDE RECORDS SUMMARY | 2016-10-02 10:25 | External Medical Summary Rpt ---
Author Author , Organization [employer] Address Unknown Phone Unavailable Purpose Continuity of Care Document - 06-12-2001 through 2016 Immunization Name Date Route CVX Reacti Commen Provid Is Given on t er Refuse d Td Histor H122A No (adult 2002 ical ), Inform adsorb ation ed - Source Unspec ified Hep B, Histor H122A No 2001 ical ped/ad Inform ol ation - Source Unspec ified
--- OUTSIDE RECORDS SUMMARY | 2016-10-02 10:25 | External Medical Summary Rpt ---
Author Author , Organization [employer] Address Unknown Phone Unavailable Care Team Providers Care Programmer Name Role Phone [facility] Unavailable Unavailable MEDICAL , [facility] Unavailable Unavailable [facility] Unavailable Unavailable MEDICAL GROUP, [facility] Unavailable [facility]available [facility], [facility] MAXIMO BRIDGETTE, MAXIMO BRIDGETTE Unavailable Unavailable [facility], Unavailable Unavailable [facility] Unavailable Unavailable [facility], [facility] Unavailable Unavailable [facility], [facility] CHANDIRAMANI SHA, Unavailable Unavailable CHANDIRAMANI SHA [place] [facility], [place] Unavailable Unavailable [facility] JOLGREN KAYCEE, JOLGREN Unavailable Unavailable KAYCEE CRISTOPHER BERMEO DEN, Unavailable Unavailable CRISTOPHER [facility], Unavailable [facility]available [facility] Unavailable Unavailable CENTER A, [facility] A MIRACLE MAT, MIRACLE MAT Unavailable Unavailable [facility] Unavailable Unavailable [facility], [facility] MARISELA JOVI, MARISELA JOVI Unavailable Unavailable [facility] Unavailable Unavailable [facility], [facility] Unavailable Unavailable MEDICAL SP, [facility] Purpose Continuity of Care Document - 04-21-2014 through 2016 Problems Code Diagnosis DOS Provider Status A419 SEPSIS 12-18-2015 [facility] UNSPECIFIED [facility] N10 ACUTE 12-18-2015 [facility]ONE[facility]ERG[facility]Y TIS MEDICIN R000 TACHYCARDIA 12-18-2015 [facility] UNSPECIFIED MEDICIN R1012 LEFT UPPER 12-18-2015 [facility] [place] R109 UNSPECIFIED 12-18-2015 [facility] PAIN R112 NAUSEA WITH 12-18-2015 [facility] VOM[facility]ING [facility]ERGENCY UNSPECIFIED MEDICIN R4182 ALTERED 12-18-2015 [facility] STATUS UNSPECIFIED R509 FEVER 12-18-2015 [facility]PECIFIED [facility] R5383 OTHER 12-18-2015 [facility] FATIGUE EMERGENCY MEDICIN L24251 PERSONAL 12-18-2015 [facility] HISTORY OF HEALTH NICOTINE [facility] DEPENDENCE [id number] POISN UNS 10-11-2015 [facility] BIO SERVICE SUBSTANCE ACC INIT ENC K088 OTH SPEC 09-12-2015 [facility] TEETH & MEDICAL SP SUPPORTING STRUCTURES 5259 UNSPECIFIED 01-02-2015 [facility] TEETH&SUPPO MEDICAL RTING STRUCTURES 84449 UNSPECIFIED 12-10-2014 [place] VIRAL PRIMARY HEPATITIS C [...] UNSPECIFIED CARE SOUT CONDITION 9219 UNSPECIFIED 11-28-2014 [facility] CONTUSION EMERGENCY OF EYE MEDICAL E914 FOREIGN 11-28-2014 [facility] BODY EMERGENCY ACCIDENTALL MEDICAL Y ENTERING EYE&ADNEXA 3679 UNSPECIFIED 11-04-2014 [place] [facility] CENTER A REFRACTION& ACCOMMODATI ON Procedures Procedure [place] [address] [facility] INFUSION 6 HEALTH HEALTH THERAPY/P [facility] ROPHYLAXI E E S /DX 1ST TO 1 HR URNLS DIP 89433 [facility] [address] [place] [address] STICK/TAB [facility] LET E E REAGENT AUTO MICROSCOP Y GONADOTRO 82440 [facility] PIN [address] [place] [address] CHORIONIC [facility] E E QUALITATI VE BLOOD 65182 [facility] COUNT [address] [place] [address] COMPLETE [facility] AUTO&AUTO E E DIFRNTL WBC SUSCEPTIB 69464 [facility] LTY STDY 6 [facility] ANTIMICRB [facility] IAL E E MICRO/AGA R DILUTJ DRUG TEST G0479 [facility] 6 [facility] PRESUMP;I [facility] NSTRUMENT E E ED CHEMISTRY ANLYZER INJECTION J0696 [facility]ISH 6 [facility] CEFTRIAXO [facility] NE SODIUM E [place] [address] [place] [address] X RAY JOLGREN ABDOMEN & 6 ASSOCIATE KAYCEE PELVIS S OF W/CONTRAS [facility] T MATERIAL ECG 49466 [facility] CH[facility]AM ROUTINE 6 [facility] MEDICAL W/LEAST GROUP 12 LDS I&R ONLY GROUND A0425 [facility] 6 [facility] [place] [address] [facility] INFUSION 6 [facility] HYDRATION [facility] EACH E E ADDITIONA L HOUR COMPREHEN 51657 [facility] SIVE [address] [place] [address] METABOLIC [facility] [place] [address] [facility] LACTATE [address] [place] [address] E E LOCM Q9967 [facility] 300-[address] [place] [address] MG/ML [facility] IODINE E E CONCENTRA TION PER ML CULTURE 48484 [facility] BACTERIAL 6 [facility] QUANTTATI E E VE COLONY COUNT URINE CULTURE 49852 [facility] BCT [address] [place] [address] ISOL&PRSM [facility] PTV [place] [address] [facility] LIPASE 6 [facility] E E ECG 31969 [facility] ROUTINE [address] [place] [address] ECG [facility] W/LEAST E E 12 LDS TRCG ONLY W/O I&R AMB A0427 [facility] SERVICE 6 [facility] EMERGENCY EMERGENCY EMERGENCY SERVICE SERVICE TRANSPORT LEVEL 1 GROUND A0425 [facility] MILEAGE 6 PER EMERGENCY EMERGENCY STATUTE SERVICE SERVICE MILE MICROSOMA 57740 [facility] L 5 OF OF ANTIBODIE [place] [address] [facility] THYROXINE 5 OF OF TOTAL [place] E HOSPI E HOSPI THYROID 61719 [facility] HORM 5 OF OF UPTK/THYR [facility] OID E HOSPI E HOSPI HORMONE BINDING RATIO THYROGLOB 00614 [facility] ULIN 5 OF OF ANTIBODY [place] [address] [facility] THYROID 5 OF OF STIMULATI [place] NG E HOSPI E HOSPI HORMONE TSH COMPREHEN 94741 [facility] SIVE 5 OF OF METABOLIC [place] PANEL E HOSPI E HOSPI ACUTE 33831 [facility] HEPATITIS 5 OF OF PANEL [place] [address] [facility] THYROID 5 OF OF STIMULATI [place] NG E HOSPI E HOSPI HORMONE TSH LIPID 66718 [facility] PANEL 5 OF OF [place] E HOSPI E HOSPI BLOOD 69370 [facility] COUNT 5 OF OF COMPLETE [place] AUTO&AUTO E HOSPI E HOSPI DIFRNTL WBC DETERMINA 73230 [facility] TION [address] [facility] REFRACT[facility] CARE E [facility] A OPHTH 07222 [facility] MEDICAL [address] [facility] XM&EVAL CARE [facility] NEW PT 1/> VST Encounters Encounter Start End Date Code Location Performer Type Date EMERGENCY 30047 TERESA NICHOLAS DEPT 6 6 E JR. DEN VISIT EMERGENCY HIGH MEDICIN SEVERITY& THREAT [facility] - 6 6 HEALTH OUTPATIEN TERSEA Melgoza EMERGENCY 38525 [facility] BRIDGETTE 6 6 EMERG DEPARTMEN MEDICAL T VISIT SP MODERATE SEVERITY EMERGENCY 55825 [facility] ATT[facility] 5 5 EMERGENCY GRE DEPARTMEN MEDICAL T VISIT HIGH/URGE NT SEVERITY [facility] - 5 5 OF OUTPATIEN [facility]PI OFFICE 15159 RICARDO CALDERA OUTPATIEN 5 5 E PRIMARY T VISIT CARE 25 SOUT MINUTES INITIAL 13597 RICARDO CALDERA PREVENTIV 5 5 E PRIMARY E CARE MEDICINE SOUT NEW PT AGE 18-39YRS [facility] - 5 5 OF OUTPATIEN [place] T E HOSPI EMERGENCY 20990 IN[facility]IA ESPANA 5 5 EMERGENCY DEPARTMEN MEDICAL T VISIT HIGH/URGE NT SEVERITY
[2016-10-02 11:31] VITALS: BP 136/62
--- NOTE | 2016-10-02 20:49 | RADIOLOGY REPORT PS360 ---
FOOT-RT-3 VIEWS COMPARISON: None HISTORY: Altered mental status TECHNIQUE: AP lateral and oblique views FINDINGS: The tarsal bones metatarsals and phalanges appear intact with no evidence of recent or old fracture. The plantar arch is normal and the soft tissues are normal. IMPRESSION: Negative right foot
== END 2016-10-02 11:32 | disposition home or self-care (01) ==
LOC: ER 08:58
PROVIDERS: Emergency Medicine
DX: F23 Brief psychotic disorder (principal); E87.6 Hypokalemia; F14.10 Cocaine abuse, uncomplicated; S90.811A Abrasion, right foot, initial encounter